=== PATIENT | male | born 1995 | race African-American/Black ===

== ENCOUNTER → 2017-01-25 | Outpatient (CLI) | payer BC, OTHER | END | disposition home or self-care (01) | LOC: C.RDSM 11:27 | PROVIDERS: ATTEND Family Medicine | DX: M25.312 Other instability, left shoulder (principal) ==

== ENCOUNTER → 2017-07-06 | Outpatient (CLI) | payer BC, OTHER ==
--- NOTE | 2017-07-06 07:16 | DIAGNOSTIC IMAGING REPORT ---
L LOWER EXT JOINT WITHOUT CLINICAL HISTORY: L ANKLE PAIN AND JOINTS OF L FOOT pain TECHNIQUE: Multiaxial MRI acquisition COMPARISON STUDY: None FINDINGS: Signal characteristics of all major osseous structures are unremarkable. There is no abnormal bone marrow replacing process. All major ligamentous and tendinous structures of the ankle are unremarkable. Subtalar joint is within normal limits. The interosseous ligament is intact. Structures the plantar fascia are unremarkable. All major structures the lateral as well as medial ligamentous complex are intact. There is no significant joint effusion. IMPRESSION: Normal study The above report was generated using voice recognition software. It may contain grammatical, syntax or spelling errors. Electronically signed by: Norman Mcmanus M.D. 07/06/2017 7:14 AM Dictated Date/Time: 07/06/2017 7:09 AM
== END | disposition home or self-care (01) ==
LOC: C.MRI 06:13
PROVIDERS: ATTEND Orthopaedic Surgery
DX: M25.572 Pain in left ankle and joints of left foot (principal)

== ENCOUNTER → 2017-12-02 | Outpatient (CLI) | payer BC, OTHER ==
--- NOTE | 2017-12-02 08:46 | DIAGNOSTIC IMAGING REPORT ---
L LOWER EXT JOINT WITHOUT CLINICAL HISTORY: 22 years-old Male presenting with LEFT ANKLE PAIN along the lateral aspect, injury at football practice, no prior surgery. TECHNIQUE: Multisequence, multiplanar MR imaging of the left ankle was performed without the use of intravenous contrast. IV contrast: 07/06/2017. COMPARISON: None. FINDINGS: Localizer images: Unremarkable. Bone marrow: Normal bone marrow signal intensity. No bony edema. Articular cartilage: Articular cartilage preserved. Syndesmotic ligament: Tear of the interosseous ligament with edema in the interosseous region (series 9 image 5). Tear of the tibial insertional fibers of the anterior tibiofibular ligament. Posterior tibiofibular ligament intact. Lateral ligamentous complex: Anterior and posterior talofibular ligaments and calcaneofibular ligament intact. Deltoid ligament complex: Intact. Anterior tendons: Trace edema tracks deep to the extensor digitorum longus (series 9 image 8). Tibialis anterior, extensor hallucis longus and extensor digitorum longus tendons intact. Lateral tendons: Peroneus longus and brevis tendons intact. Medial tendons: Posterior tibialis, flexor digitorum longus and flexor hallucis longus tendons intact. Plantar fascia: Medial and lateral bundles of the plantar fascia intact. No nodularity of the plantar fascia. Achilles tendon: Achilles tendon intact. No retrocalcaneal bursitis. No infiltration of Kager fat pad. Sinus tarsi: Normal signal intensity within the sinus tarsi. Joint effusion: No significant ankle joint effusion. Muscle: Normal muscle bulk and muscle signal intensity. Superficial soft tissue: No subcutaneous edema. IMPRESSION: Tear of the interosseous ligament and tear of the anterior tibiofibular ligament consistent with high ankle sprain. Electronically signed by: Cuauhtemoc Mcnair M.D. 12/02/2017 8:45 AM Dictated Date/Time: 12/02/2017 7:29 AM
== END | disposition home or self-care (01) ==
LOC: C.MRI 06:12
PROVIDERS: ATTEND Family Medicine
DX: M25.572 Pain in left ankle and joints of left foot (principal); S93.402A Sprain of unspecified ligament of left ankle, initial encounter; X58.XXXA Exposure to other specified factors, initial encounter